=== PATIENT | female | born 1975 | race Caucasian/White ===

== ENCOUNTER 2016-11-22 22:56 | Emergency (ER) | payer MEDICAID ==
[~2016-11-22 22:56] MED LIST: ANTIVERT PO; ASPIRIN E.C. 8181 MG PO; BENADRYL25 M2 PO; CELEXA 20MG20 MG/TA1 PO; CLEOCIN HCL300 MG PO; CRANBERRY200 MG PO; GABAPENTIN TAB600 MG PO; GOOD NEIGHBOR200 M1 PO; MIRAPEX0.5 MG PO; NEURONTIN300 MG/CAP PO; NORCO 325 MG-51 TAB PO; SKELAXIN 800MG800 MG PO
[2016-11-23] MEDS ORDERED: RT ALBUTEROL CC18 GM IH (00:05)
[2016-11-23] MEDS ORDERED: CHERATUSSIN AC120 ML PO (00:05)
[2016-11-23] MEDS ORDERED: TESSALON PERLE100 M1 PO (00:05)
[2016-11-23] MEDS ORDERED: ZOFRAN ODT8 M1 PO (00:07)
[2016-11-23] MEDS ORDERED: ADULT LOW DOSE81 MG PO (00:25)
== END 2016-11-23 00:25 | disposition home or self-care (01) ==
LOC: ED 22:56
DX: J20.9 Acute bronchitis, unspecified (principal); F17.210 Nicotine dependence, cigarettes, uncomplicated; R11.2 Nausea with vomiting, unspecified; F15.10 Other stimulant abuse, uncomplicated
CPT/HCPCS: J1100; J1885